=== PATIENT | female | born 1970 | race Two or more races ===

== ENCOUNTER 2025-01-02 20:10 | Inpatient (IN) | payer MEDICARE, OTHER ==
[~2025-01-02] VITALS: Ht 172.7 cm; Wt 183.7 kg
[2025-01-02 20:47] LABS: BASOPHILS % (AUTO) 0.5 % (0.0-2.0); EOSINOPHILS # (AUTO) 0.1 K/uL (0.0-0.7); EOSINOPHILS % (AUTO) 1.3 % (0.0-6.0); HEMATOCRIT 37 % (33-45); HEMOGLOBIN 12.9 g/dL (11.5-14.8); LYMPHOCYTES % (AUTO) 24.3 % (20.0-44.0); MEAN CORPUSCULAR HEMOGLOBIN 35 PG (26.0-33.0); MEAN CORPUSCULAR HGB CONC 35 g/dl (31.0-36.0); MEAN CORPUSCULAR VOLUME 101 fL (82-100); MONOCYTES # (AUTO) 0.6 K/uL (0.1-1.30); MONOCYTES % (AUTO) 6.9 % (2.0-12.0); NEUTROPHILS # (AUTO) 5.6 K/uL (1.8-8.9); PLATELET COUNT (AUTO) 170 K/uL (150-450); RED BLOOD CELL COUNT(AUTO) 3.69 MIL/uL (4.0-5.2); RED CELL DISTRIBUTION WIDTH 15.2 % (11.5-15.0); WHITE BLOOD COUNT (AUTO) 8.4 K/uL (4.3-11.0)
[2025-01-02 20:49] LABS: CALCIUM, SERUM 10.2 mg/dL (8.5-10.1); CARBON DIOXIDE 27 mmol/L (21-32); CHLORIDE 100 mmol/L (98-107); CREATININE 1.1 mg/dL (0.6-1.3); GLUCOSE 187 mg/dL (74-106); POTASSIUM 4.4 mmol/L (3.5-5.1); SODIUM SERUM 135 mmol/L (136-145); UREA NITROGEN, BLOOD 22 mg/dL (7-18)
[2025-01-02 20:53] LABS: INR 1.07 (0.91-1.10); PARTIAL THROMBOPLASTIN TIME 31.4 SEC (24.3-34.3)
[2025-01-02 20:55] LABS: ALANINE AMINOTRANSFERASE 22 U/L (12-78); ALBUMIN 3.4 g/dL (3.4-5.0); ALKALINE PHOSPHATASE 93 U/L (46-116); ASPARTATE AMINOTRANSFERASE 30 U/L (15-37); BILIRUBIN,DIRECT 0.2 mg/dL (0.0-0.2); BILIRUBIN,TOTAL 0.5 mg/dL (0.2-1.0); LIPASE 57 U/L (16-77); TOTAL PROTEIN, SERUM 8.5 g/dL (6.4-8.2)
[2025-01-02 21:13] LABS: APPEARANCE,URINE SLIGHTLY CLOUDY (CLEAR); BILIRUBIN,URINE Negative (NEGATIVE); BLOOD, URINE Moderate Ery/uL (NEGATIVE); COLOR,URINE YELLOW (YELLOW); KETONES,URINE Negative (NEGATIVE); LEUKOCYTE ESTERASE ,URINE Negative (NEGATIVE); PH,URINE 5.5 (5.0-8.0); PROTEIN,URINE 30 mg/dl (NEGATIVE); UGLUCOSE 500 MG/DL mg/dL (NEGATIVE); UROBILINOGEN,URINE 0.2 EU/dL (0.2)
[2025-01-02 21:14] LABS: NITRITE, URINE NEGATIVE (NEGATIVE)
[2025-01-02 21:27] LABS: SERUM AMMONIA 15 umol/L (11-32)
[2025-01-02] MEDS ORDERED: MAG HYDROX/AL HYDROX/SIMETH 30 ML UDC PO PRN (21:30)
[2025-01-02] MEDS ORDERED: MAGNESIUM HYDROXIDE 30 ML UDC PO PRN (21:30)
[2025-01-02] MEDS ORDERED: ONDANSETRON HCL/PF 4 MG/2 ML VIAL IVP PRN (21:30)
[2025-01-02] MEDS ORDERED: ZOLPIDEM TARTRATE 5 MG TABLET PO PRN (21:30)
[2025-01-02] MEDS ORDERED: Z GUARD REMEDY 4 OZ OINT TP PRN (21:30)
[2025-01-02] MEDS ORDERED: ACETAMINOPHEN 325 MG TABLET PO PRN (21:30)
[2025-01-02] MEDS ORDERED: DEXTROSE 50%-WATER 50 ML DISP.SYRIN IV PRN (21:30)
[2025-01-02] MEDS ORDERED: AMIN30LI7 PO (21:36)
[2025-01-02] MEDS ORDERED: GEMF600T90 PO (21:36)
[2025-01-02] MEDS ORDERED: HYDR12.55 PO (21:36)
[2025-01-02] MEDS ORDERED: AZEL205. BNOSTRILS (21:36)
[2025-01-02] MEDS ORDERED: TRAZ150T75 PO (21:36)
[2025-01-02] MEDS ORDERED: PROP40TA7 PO (21:36)
[2025-01-02] MEDS ORDERED: METF-442 PO (21:36)
[2025-01-02] MEDS ORDERED: POTA-10 PO (21:36)
[2025-01-02] MEDS ORDERED: APIX5TAB PO (21:36)
[2025-01-02] MEDS ORDERED: FURO40TA5 PO (21:36)
[2025-01-02] MEDS ORDERED: SEMA7TAB PO (21:36)
[2025-01-02] MEDS ORDERED: SUMA100T16 PO ×2 (21:36)
[2025-01-02] MEDS ORDERED: FERR-56 PO (21:36)
[2025-01-02] MEDS ORDERED: IPRA12.9 INH (21:36)
[2025-01-02] MEDS ORDERED: NPH,100I SQ (21:36)
[2025-01-02] MEDS ORDERED: AZEL6DRO5 RIGHTEYE (21:36)
[2025-01-02] MEDS ORDERED: MULT-213 PO (21:36)
[2025-01-02] MEDS ORDERED: ASCO500C18 PO (21:36)
[2025-01-02] MEDS ORDERED: FLUO40CA49 PO (21:36)
[2025-01-02] MEDS ORDERED: MAGN200T5 PO (21:36)
[2025-01-02] MEDS ORDERED: EMPA25TA PO (21:36)
[2025-01-02] MEDS ORDERED: BUPR300T52 PO (21:36)
[2025-01-02] MEDS ORDERED: GABA600T12 PO ×3 (21:36)
[2025-01-02] MEDS ORDERED: BISA-79 PO (21:36)
[2025-01-02] MEDS ORDERED: SIMV-46 PO (21:36)
[2025-01-02] MEDS ORDERED: CELE200C PO (21:36)
[2025-01-02] MEDS ORDERED: HYDR-4209 PO (21:36)
[2025-01-02 22:00] VITALS: BP 141/67; TEMP 98.1; O2SAT 98
[2025-01-02] MEDS: BLOOD SUGAR DIAGNOSTIC 1 EACH STRIP VI SCH (22:00)
[2025-01-02 22:21] LABS: ADD URINE CULTURE NO; BACTERIA,URINE Rare /HPF (None Seen); RBC,URINE 21-50 /HPF (0-2)
[2025-01-02] MEDS: *INSULIN REGULAR(HUMULIN R)HUM 100 UNIT/ML VIAL SQ PRN (23:37)
[2025-01-02] MEDS: ENOXAPARIN SODIUM 40 MG/0.4 ML DISP.SYRIN SQ SCH (23:38)
[2025-01-03] MEDS ORDERED: SUMATRIPTAN SUCCINATE 100 MG TABLET PO SCH (01:00)
[2025-01-03] MEDS ORDERED: SUMATRIPTAN SUCCINATE 100 MG TABLET PO PRN ×2 (01:00→07:00)
[2025-01-03] MEDS ORDERED: AZELASTINE NASAL SPRAY 30 ML BOTTLE NS PRN (01:30)
[2025-01-03] MEDS ORDERED: IPRATROPIUM NEB FS 0.5 MG/2.5 ML AMPUL.NEB NEB PRN (02:00)
[2025-01-03] MEDS: HYDROCODONE/APAP 5/325MG TABLET PO ONE (02:03)
[2025-01-03] MEDS ORDERED: SUMATRIPTAN SUCCINATE 25 MG TABLET ONE (02:19)
[2025-01-03] MEDS: SUMATRIPTAN SUCCINATE 25 MG TABLET PO ONE (02:24)
[2025-01-03] MEDS: TRAZODONE 50 MG TABLET PO ONE (02:43)
[2025-01-03] MEDS: CELECOXIB 100 MG CAPSULE PO PRN (07:15)
[2025-01-03] MEDS: INSULIN REGULAR, HUMAN 100 UNIT/ML 3 ML VIAL SQ PRN (07:24)
[2025-01-03 07:45] LABS: BASOPHILS % (AUTO) 0.4 % (0.0-2.0); EOSINOPHILS # (AUTO) 0.1 K/uL (0.0-0.7); EOSINOPHILS % (AUTO) 1.7 % (0.0-6.0); HEMATOCRIT 36 % (33-45); HEMOGLOBIN 12.3 g/dL (11.5-14.8); LYMPHOCYTES # (AUTO) 2.3 K/uL (0.8-4.8); MEAN CORPUSCULAR HEMOGLOBIN 36 PG (26.0-33.0); MEAN CORPUSCULAR HGB CONC 35 g/dl (31.0-36.0); MEAN CORPUSCULAR VOLUME 103 fL (82-100); MONOCYTES # (AUTO) 0.6 K/uL (0.1-1.30); MONOCYTES % (AUTO) 6.9 % (2.0-12.0); NEUTROPHILS # (AUTO) 5.1 K/uL (1.8-8.9); PLATELET COUNT (AUTO) 164 K/uL (150-450); RED BLOOD CELL COUNT(AUTO) 3.46 MIL/uL (4.0-5.2); RED CELL DISTRIBUTION WIDTH 15.4 % (11.5-15.0)
[2025-01-03 08:06] LABS: CALCIUM, SERUM 9.6 mg/dL (8.5-10.1); MAGNESIUM 1.7 mg/dL (1.8-2.4); POTASSIUM 3.9 mmol/L (3.5-5.1)
[2025-01-03 08:12] LABS: THYROID STIMULATING HORMONE 2.37 uIU/mL (0.358-3.74)
[2025-01-03 08:30] LABS: PHOSPHORUS 3.8 mg/dL (2.5-4.9)
[2025-01-03 08:54] VITALS: BP 132/60; TEMP 98.1; O2SAT 94
[2025-01-03] MEDS ORDERED: INSULIN NPH, HUMAN ISOPHANE 100 UNIT/ML VIAL SQ SCH (09:00)
[2025-01-03] MEDS: PROPRANOLOL HCL 40 MG TABLET PO SCH (09:00)
[2025-01-03] MEDS: HYDROCHLOROTHIAZIDE 25 MG TABLET PO SCH (09:00)
[2025-01-03] MEDS ORDERED: Medication Not On Formulary EA (Azelastine Hcl 1 DROP) RIGHTEYE SCH (09:00)
[2025-01-03] MEDS ORDERED: HYDROCODONE/APAP 5/325MG TABLET PO SCH (09:00)
[2025-01-03] MEDS: GABAPENTIN 300 MG CAPSULE PO SCH ×3 (09:01→21:21)
[2025-01-03] MEDS: FLUOXETINE HCL 20 MG CAPSULE PO SCH (09:02)
[2025-01-03] MEDS: FUROSEMIDE 40 MG TABLET PO SCH (09:03)
[2025-01-03] MEDS: HYDROCODONE/APAP 10/325MG TABLET PO PRN (09:04)
[2025-01-03] MEDS: BUPROPION XL 150 MG TAB.ER.24 PO SCH (09:05)
[2025-01-03] MEDS: ASCORBIC ACID 500 MG TABLET PO SCH (09:07)
[2025-01-03] MEDS: MAGNESIUM OXIDE 400 MG TABLET PO SCH (09:07)
[2025-01-03] MEDS: PANTOPRAZOLE 40 MG TABLET.DR PO SCH (09:08)
[2025-01-03] MEDS: BISACODYL (5 MG) 5 MG TABLET.DR PO SCH (09:08)
[2025-01-03] MEDS: GEMFIBROZIL 600 MG TABLET PO SCH (09:08)
[2025-01-03] MEDS: FERROUS SULFATE (325 MG) 325 MG/TAB TABLET PO SCH (09:09)
[2025-01-03] MEDS: EMPAGLIFLOZIN 25 MG TABLET PO SCH (09:24)
[2025-01-03] MEDS: PROSOURCE / PROSTAT (PYXIS) 30 ML UDC PO SCH (09:25)
[2025-01-03] MEDS: MAGNESIUM OXIDE 400 MG TABLET PO ONE (11:06)
[2025-01-03] MEDS: NEOMY SULF/BACITRAC ZN/POLY 15 GM TUBE TP SCH (12:27)
[2025-01-03] MEDS: MUPIROCIN OINT 2% 22 GM TUBE TP SCH (12:27)
[2025-01-03] MEDS: DAKINS QUARTER STRENGTH (0.125%) 480 ML BOTTLE TOP SCH (12:27)
[2025-01-03 13:15] LABS: THYROID STIMULATING HORMONE 3.02 uIU/mL (0.358-3.74)
[2025-01-03 16:17] VITALS: BP 121/82; TEMP 98.1; O2SAT 94
[2025-01-03] MEDS: METFORMIN 500 MG TABLET PO SCH (16:17)
[2025-01-03] MEDS: APIXABAN 5 MG TABLET PO SCH (16:18)
[2025-01-03] MEDS: SUMATRIPTAN SUCCINATE 100 MG TABLET PO PRN (18:20)
[2025-01-03 20:00] VITALS: BP 134/63; TEMP 97.7; O2SAT 95
[2025-01-03] MEDS: INSULIN NPH, HUMAN ISOPHANE 100 UNIT/ML VIAL SQ SCH (20:24)
[2025-01-03 20:52] VITALS: BP 134/63; TEMP 97.7; O2SAT 95
[2025-01-03] MEDS: SIMVASTATIN 20 MG TABLET PO SCH (21:21)
[2025-01-03] MEDS: TRAZODONE 50 MG TABLET PO SCH (21:22)
[2025-01-04 07:07] LABS: FOLIC ACID 9.4 ng/mL (>3.0)
[2025-01-04 07:58] LABS: CALCIUM, SERUM 9.7 mg/dL (8.5-10.1); CREATININE 1.1 mg/dL (0.6-1.3); MAGNESIUM 2.1 mg/dL (1.8-2.4); PHOSPHORUS 4.6 mg/dL (2.5-4.9); POTASSIUM 3.6 mmol/L (3.5-5.1)
[2025-01-04 08:00] VITALS: BP 140/71; TEMP 97.5; O2SAT 100
[2025-01-04 08:55] LABS: CHOLESTEROL 151 mg/dL (<200); HDL CHOLESTEROL 37 mg/dL (40-60); LDL 81 mg/dL (0-99); TRIGLYCERIDES 221 mg/dL (30-150)
[2025-01-04] MEDS: MULTIVITAMINS,THERAGRAN 1 UDTAB TABLET PO SCH (09:41)
[2025-01-04 16:00] VITALS: BP 120/63; TEMP 98.1; O2SAT 95
[2025-01-04 20:00] VITALS: BP 141/66; TEMP 97.9; O2SAT 93
[2025-01-04] MEDS ORDERED: SUMATRIPTAN SUCCINATE 100 MG TABLET ONE (23:44)
[2025-01-05 08:00] VITALS: BP 128/67; TEMP 98.1; O2SAT 99
[2025-01-05 16:00] VITALS: BP 155/85; TEMP 98.1; O2SAT 95
[2025-01-05 20:00] VITALS: BP 150/69; TEMP 98.1; O2SAT 97
[2025-01-06 08:34] VITALS: BP 143/73; O2SAT 99
[2025-01-06 12:23] VITALS: BP 161/86
[2025-01-06] MEDS: CLONIDINE HCL 0.1 MG TABLET PO ONE (12:23)
[2025-01-06 16:07] LABS: VITAMIN B1 THIAMINE,WB 153.4 nmol/L (66.5-200.0)
== END 2025-01-06 14:51 | DRG 149 ==
LOC: ER 20:12 → MED 21:20
PROVIDERS: ADMIT Student in an Organized Health Care Education/Training Program; ATTEND Nurse Practitioner Acute Care
DX: H81.13 Benign paroxysmal vertigo, bilateral (principal); D68.59 Other primary thrombophilia; E87.1 Hypo-osmolality and hyponatremia; Z68.44 Body mass index [BMI] 60.0-69.9, adult; I13.0 Hypertensive heart and chronic kidney disease with heart failure and stage 1 through stage 4 chronic kidney disease, or unspecified chronic kidney disease; G47.33 Obstructive sleep apnea (adult) (pediatric); E86.0 Dehydration; E66.01 Morbid (severe) obesity due to excess calories; E11.621 Type 2 diabetes mellitus with foot ulcer; E11.22 Type 2 diabetes mellitus with diabetic chronic kidney disease; E11.610 Type 2 diabetes mellitus with diabetic neuropathic arthropathy; E11.649 Type 2 diabetes mellitus with hypoglycemia without coma; K42.9 Umbilical hernia without obstruction or gangrene; N18.9 Chronic kidney disease, unspecified; Z79.899 Other long term (current) drug therapy; Z79.84 Long term (current) use of oral hypoglycemic drugs; Z79.51 Long term (current) use of inhaled steroids; L97.519 Non-pressure chronic ulcer of other part of right foot with unspecified severity; M19.90 Unspecified osteoarthritis, unspecified site; I12.9 Hypertensive chronic kidney disease with stage 1 through stage 4 chronic kidney disease, or unspecified chronic kidney disease; E78.5 Hyperlipidemia, unspecified; G43.909 Migraine, unspecified, not intractable, without status migrainosus; E11.51 Type 2 diabetes mellitus with diabetic peripheral angiopathy without gangrene; J44.9 Chronic obstructive pulmonary disease, unspecified; G89.29 Other chronic pain; Z74.01 Bed confinement status; Z79.01 Long term (current) use of anticoagulants; Z74.09 Other reduced mobility; M77.8 Other enthesopathies, not elsewhere classified
CPT/HCPCS: 36415; 71045-TC; 73030-TC; 80048-TC; 80061-TC; 80076-TC; 81001; 82140-TC; 82607-TC; 82962-TC; 83690-TC; 83735-TC; 83921; 84100-TC; 84425; 84443-TC; 84484-TC; 85025-TC; 85730-TC; 87081-TC; 93307-TC; 93970-TC; 94760-TC; 94799-TC; 97116-TC; 97530-TC; A6253; A6403; G0378; J1650; J1815